=== PATIENT | female | born 1990 | race African-American/Black ===

== ENCOUNTER 2016-09-08 11:04 | Emergency (ER) | payer OTHER ==
[~2016-09-08] VITALS: Ht 157.5 cm; Wt 73.5 kg
[2016-09-08 12:30] VITALS: BP 129/64
--- NOTE | 2016-09-08 12:34 | PHYS DOC ---
Past Medical History Past Medical History: No Pertinent History Past Surgical History: No Surgical History Alcohol Use: None Drug Use: None Adult General Chief Complaint Chief Complaint: ALLERGIC REACTION [facility] HPI Patient is a 25 year old female presents emergency department stating that Friday she was and biology lab. She states that she believes acuity grossly of came up into her eyes. She denies irrigated your eyes out she does state that she's continued to have burning itching stinging and pain in her right eye and now is having the pain and discomfort in the left. Patient also states that she' s had an upper respiratory congestion as well. She has not taken anything over- the-counter for the congestion. She has however used some pink eye solution over -the-counter without relief. Patient denies any fever, chills she denies any difficulty with her vision. Patient denies use of contact lenses. Review of Systems Review of Systems Constitutional: Denies fever or chills [] Eyes: Denies change in visual acuity, C/o redness, bilateral pain and discomfort ] HENT: Denies nasal congestion or sore throat [] Respiratory: Denies cough or shortness of breath [] Cardiovascular: No additional information not addressed in HPI [] GI: Denies abdominal pain, nausea, vomiting, bloody stools or diarrhea [] : Denies dysuria or hematuria [] Musculoskeletal: Denies back pain or joint pain [] Integument: Denies rash or skin lesions [] Neurologic: Denies headache, focal weakness or sensory changes [] Current Medications Current Medications Current Medications Medications (Trade) Dose Ordered Sig/Aniya Start Time Stop Time Status Last Admin Dose Admin Fluorescein Sodium (Ful-Janice) 2 strip 1X ONCE 09/08/16 12:45 09/08/16 12:46 DC 09/08/16 12:39 2 STRIP Tetracaine HCl (Tetracaine) 1 drop 1X ONCE 09/08/16 12:45 09/08/16 12:46 DC 09/08/16 12:39 1 DROP Allergies Allergies Allergies Coded Allergies Type Severity Reaction Last Updated Verified No Known Drug Allergies 10/28/13 No Physical Exam Physical Exam Constitutional: Well developed, well nourished, no acute distress, non-toxic appearance. [] HENT: Normocephalic, atraumatic, bilateral external ears normal, oropharynx moist, no oral exudates, nose normal. Bilateral tympanic membranes appear to be normal. Eyes: PERRLA, EOMI, conjunctiva red, clear drainage noted from bilateral eyes. Bilateral upper and lower eyelids are swollen. Neck: Normal range of motion, no tenderness, supple, no stridor. [] Cardiovascular:Heart rate regular rhythm, no murmur [] Lungs & Thorax: Bilateral breath sounds clear to auscultation [] Skin: Warm, dry, no erythema, no rash. [] Back: No tenderness Extremities: No tenderness, no cyanosis, no clubbing, ROM intact, no edema. [] Neurologic: Alert and oriented X 3, normal motor function, normal sensory function, no focal deficits noted. [] Psychologic: Affect normal, judgement normal, mood normal. [] Current Patient Data Vital Signs Vital Signs Date Time Temp Pulse Resp B/P Pulse Ox O2 Delivery O2 Flow Rate FiO2 09/08/16 12:30 98.3 96 20 100 Room Air 98.3 EKG EKG [] Radiology/Procedures Radiology/Procedures [] Course & Med Decision Making Course & Med Decision Making Pertinent Labs and Imaging studies reviewed. (See chart for details) Patient's eyes were irrigated for approximately 20 minutes. Tetracaine was placed in the eyes as well as forcing. No fluorescein uptake noted. Patient will be discharged home with Polytrim. Recommended following up with a press helper within the next 3-4 days. Patient will be discharged home in stable condition signs and symptoms to return back to emergency department as been provided. Patient agrees with discharge instructions, treatment regimens and follow-up recommendations. [] Dragon Disclaimer Dragon Disclaimer This electronic medical record was generated, in whole or in part, using a voice recognition dictation system. Departure Departure Impression: Primary Impression: Bilateral conjunctivitis Disposition: 01 HOME, SELF-CARE Condition: STABLE Referrals: NON,STAFF (PCP) Patient Instructions: Bacterial Conjunctivitis, [id number] Additional Instructions: Medications as prescribed. Follow-up with an press helper in the next 24-48 hours. Rest as much as possible. Good handwashing is essential. Tylenol or ibuprofen for pain and discomfort. Return back to emergency percent symptoms of become worse. Scripts Polymyxin B Sulf/Trimethoprim (Polymyxin B-Tmp Eye Drops)10 Ml Drops1 Drop EACHEYE QID #10 ML Apply to bilateral eyes for the next 7 days Prov:LEFTY LAMAS NP 09/08/16 LEFTY LAMAS NP Sep 08, 2016 12:34
[2016-09-08] MEDS ORDERED: TETRACAINE 0.5% OPHTH SOLUTION 4ML BOTTLE. OU ONE (12:45)
[2016-09-08] MEDS ORDERED: FLUORESCEIN OPHTH TEST STRIP. OU ONE (12:45)
[2016-09-08] MEDS ORDERED: POLY10DR3 EACHEYE (13:23)
== END 2016-09-08 13:39 | disposition home or self-care (01) ==
LOC: ER 11:04
DX: H10.9 Unspecified conjunctivitis (principal)
CPT/HCPCS: 99283